=== PATIENT | female | born 1945 | race Caucasian/White ===

== ENCOUNTER 2024-10-08 13:30 | Inpatient (IN) | payer MEDICARE ==
[~2024-10-08] VITALS: Ht 152.4 cm; Wt 61.4 kg
[~2024-10-08 13:30] MED LIST: CALCITONIN-SAL3.7 ML; DILTIAZEM ER300 MG PO; HYDROCODON-ACE1 EA10 PO; OXYBUTYNIN CHLO10 MG PO; SPIRONOLACTONE25 MG PO
[2024-10-08] MEDS ORDERED: BENZONATATE100 MG PO (14:03)
[2024-10-08 14:52] LABS: BASOPHILS 0.1 % (0.1-1.2); EOSINOPHILS 0.4 % (0.7-5.8); HEMOGLOBIN 12.9 g/dL (11.2-15.7); LYMPHOCYTES 29.8 % (19.3-51.7); MCH 33.6 PG (25.6-32.2); MCHC 34.9 g/dL (32.2-35.5); MCV 96.4 fL (79.4-94.8); NEUTROPHILS 62.3 % (34.0-71.1); PLATELET COUNT 279 K/uL (182-369); RBC 3.84 M/uL (3.93-5.22)
[2024-10-08 15:14] LABS: ALBUMIN/GLOBULIN RATIO 0.54 (1.1-2.4); ANION GAP 13.4 (7-21); BILIRUBIN, TOTAL 0.7 mg/dL (0.2-1.0); BUN/CREATININE RATIO 10.29 (6.0-28.6); CALCIUM 8.6 mg/dL (8.5-10.1); CREATININE, SERUM 0.68 mg/dL (0.55-1.02); POTASSIUM 3.4 mmol/L (3.5-5.1); PROTEIN, TOTAL 8.6 g/dL (6.4-8.2)
[2024-10-08] MEDS ORDERED: SODIUM CHLORIDE 0.9% 1,000 ML IV PRN (15:15)
[2024-10-08 15:43] LABS: LACTIC ACID, BLOOD 0.9 mmol/L (0.4-2.0)
[2024-10-08 17:19] LABS: AMPHETAMINES, URINE NEGATIVE (NEGATIVE); BARBITURATES, URINE NEGATIVE (NEGATIVE); BENZODIAZEPINE, URINE NEGATIVE (NEGATIVE); BUPRENORPHINE, URINE NEGATIVE (NEGATIVE); CANNABINOID, URINE NEGATIVE (NEGATIVE); COCAINE, URINE NEGATIVE (NEGATIVE); ECSTASY, URINE NEGATIVE (NEGATIVE); FENTANYL, URINE NEGATIVE (NEGATIVE); METHADONE, URINE NEGATIVE (NEGATIVE); OPIATES, URINE NEGATIVE (NEGATIVE); OXYCODONE, URINE NEGATIVE (NEGATIVE); PHENCYCLIDINE, URINE NEGATIVE (NEGATIVE)
[2024-10-08] MEDS ORDERED: HEParin SOD (PORCINE) 5,000 UNIT/ML SYR IV PRN ×3 (19:30)
[2024-10-08] MEDS ORDERED: HEPARIN SOD,PORK IN 0.45% NACL 500 ML IV SCH (19:30)
[2024-10-08] MEDS ORDERED: HEParin SOD (PORCINE) 5,000 UNIT/ML SYR IV ONE (19:30)
[2024-10-08 19:41] LABS: INR 1.09 (0.80-1.30); PROTIME 13.7 Sec (11.2-14.2)
[2024-10-08 19:43] LABS: PARTIAL THROMBOPLASTIN TIME 23.5 Sec (22.9-41.3)
[2024-10-08 21:58] VITALS: BP 184/81
--- NOTE | 2024-10-08 23:09 | NUR ---
PT ALERT AND ORIENTED. PUDDING AND ICE WATER PROVIDED. ADMISSION ASSESSMENT COMPLETE. PT DENIES PAIN OR NAUSEA. DENIES SOB. SpO2 MID 90'S ON RA. TELE #[address] HR 100'S. HEPARIN DRIP INFUSING PER ORDER. PT ORIENTED TO ROOM AND NURSE CALL LIGHT. PT DENIES QUESTIONS OR CONCERNS. CALL LIGHT IN REACH. BED ALARM FOR SAFETY.
[2024-10-09] VITALS (11 sets, daily range): BP systolic 138–169; BP diastolic 56–80
--- NOTE | 2024-10-09 00:31 | NUR ---
PT RESTING IN BED WITH EYES CLOSED. RESPIRATIONS EVEN. SpO2 92% ON RA. HR 90'S. BED ALARM IN PLACE. CALL LIGHT IN REACH.
[2024-10-09] MEDS ORDERED: ALBUTEROL SULFATE 0.083% 3 ML VIAL INH PRN (02:45)
--- NOTE | 2024-10-09 02:51 | NUR ---
LAB IN FOR DRAW. VS AND I&O OBTAINED. ASSESSMENT UNCHANGED. PT DENIES PAIN OR SOB. DRY COUGH NOTED. SpO2 MID 90'S. HR LOW 100'S. NO NEEDS AT THIS TIME. CALL LIGHT IN REACH.
--- NOTE | 2024-10-09 03:14 | NUR ---
PTT RECEIVED. HEPARIN DRIP STOPPED PER PROTOCOL FOR 30 MINUTES.
--- NOTE | 2024-10-09 05:14 | NUR ---
PT AWAKE IN BED. VS AND I&O OBTAINED. PT DENIES NEEDS. CALL LIGHT IN REACH. BED ALARM FOR SAFETY.
--- NOTE | 2024-10-09 07:26 | NUR ---
Pt report received from ANY Donaldson. Pt is resting supine in bed, HOB elevated, eyes closed, breathing is regular, even, and non-labored, pt is snoring softly with mouth agape. IVF are running at ordered rate (heparin), verified at bedside with ANY Donaldson. Side rails up x4, bedside table in reach, call light in reach. White board updated. CPOX on, SPO2 at 90% on room air.
[2024-10-09] MEDS ORDERED: SPIRONOLACTONE 25 MG TAB PO SCH (09:00)
[2024-10-09] MEDS ORDERED: dilTIAZem HCL 300 MG CAPCR PO SCH (09:00)
[2024-10-09] MEDS ORDERED: oxyBUTYnin chloride 5 MG TAB PO SCH (09:00)
[2024-10-09] MEDS ORDERED: POTASSIUM BICARBONATE/CIT AC 20 MEQ TABEF PO ONE (09:00)
[2024-10-09 09:46] LABS: BASOPHILS 0.3 % (0.1-1.2); EOSINOPHILS 0.8 % (0.7-5.8); HEMATOCRIT 34.6 % (34.1-44.9); HEMOGLOBIN 12.2 g/dL (11.2-15.7); LYMPHOCYTES 28.2 % (19.3-51.7); MCH 34.1 PG (25.6-32.2); MCHC 35.3 g/dL (32.2-35.5); MCV 96.6 fL (79.4-94.8); MONOCYTES 7.4 % (4.7-12.5); PLATELET COUNT 308 K/uL (182-369); RBC 3.58 M/uL (3.93-5.22)
[2024-10-09] MEDS ORDERED: APIXABAN 5 MG TAB PO SCH (10:00)
[2024-10-09] MEDS ORDERED: AZITHROMYCIN 250 MG TAB PO SCH (10:00)
--- NOTE | 2024-10-09 10:09 | NUR ---
Pt visitor came to nurse's station to advise that the pt does not sleep well and wondered if there was any medication that can be ordered to help her sleep. I asked the pt if she does have trouble sleeping and she said, "yes". I asked her if she has taken melatonin before and if so, did it help her, and she stated, "yes". Notified Dr. Gaitan of the pt's concern for sleep and he advised that he would order melatonin.
[2024-10-09] MEDS ORDERED: levoFLOXacin 750 MG TAB PO SCH (10:15)
--- NOTE | 2024-10-09 10:53 | NUR ---
HOURLY ROUNDING. PATIENT IS IN BED, PATIENT WAS OFFERED A SHOWERED AND REFUSED. NO REQUEST FROM PATIENT AT THIS TIME. BOARD HAS BEEN UPDATED AND CALL LIGHT PLACED WITHIN REACH
--- NOTE | 2024-10-09 11:22 | NUR ---
Noted the "Nurse Notify" to "notify imaging department to order isotope". I have called Imaging 4 times with no answer. I will continue to try to contact them.
--- NOTE | 2024-10-09 11:27 | NUR ---
U/S complete in pt's room
--- NOTE | 2024-10-09 11:28 | NUR ---
NOTIFIED OF SURGICAL SERVICES DIRECTOR STATING THE BLE VENOUS ULTRASOUND WAS NEGATIVE. NO NEW ORDERS AT THIS TIME.
--- NOTE | 2024-10-09 14:06 | NUR ---
In with pt for hourly rounding. Pt is sitting up in bed, watching television and using her cell phone. Pt denies needs at this time, but tells me that her right eye is "really bothering me". Noted slight redness underneath eye and it appears slightly watery. Pt states she keep getting "stuff" out of the inner corner of her right eye and states that her eye is itchy. She states it does not feel "gritty" or unique or like there is grit in her eye. Pt accepts a warm wash cloth to apply to her right eye for now. Advised pt that I will reach out to Dr. Gaitan to see if he wants to order her any drops for her eyes. She states she has "thera eyes" drops but has not used them since arriving at the hospital.
--- NOTE | 2024-10-09 14:23 | NUR ---
Notified Dr. Gaitan of pt's c/o itching and discharge from pt's eye. Pt advises she has had it for a week.
[2024-10-09] MEDS ORDERED: OXYBUTYNIN CHLO10 MG PO (15:26)
--- NOTE | 2024-10-09 15:32 | NUR ---
MED REC COMPLETE
--- NOTE | 2024-10-09 17:14 | NUR ---
Called Lucas in [place] and asked him if he has had time to review teaching for the coronet with this pt. He advised he has not had time yet today. He advised he was okay with this RN providing pt teaching to her for this. Coronet provided to pt and reviewed instructions for use with pt. Advised her that the orders state to use the coronet 10 times every hour while awake. Pt verbalized understanding of instructions. Dinner tray at bedside. Assisted pt with setting up her meal. Call light in reach.
--- NOTE | 2024-10-09 17:59 | NUR ---
Pt has been in bed for most of the shift, stating she feels too tired to get up and ambulate or sit up in the chair. Pt has been up to void and had a BM earlier in the shift, before an order for a stool sample was entered, and has not had another BM since. Stool sample still needs to be collected. Pt has been tolerating meals well, maintains adequate SPO2 on room air, has a moist cough, and has complained only of her right eye "bothering me" and it itches. Her complaint was assessed by Dr. Gaitan, who ordered erythromycin ointment for her eye Q4H for "pink eye". First dose was administered around 1700 hours. Med is locked in pt lock box in room. Pt was provided with a coronet and instructed on its use. Pt was able to demonstrate its use successfully. Pt has had no c/o pain this shift, and her sats have remained above 90% on room air.
[2024-10-09] MEDS ORDERED: ERYTHROMYCIN 3.5 GM TUBE OD SCH (18:00)
--- NOTE | 2024-10-09 19:30 | NUR ---
CALL LIGHT ANSWERED. SBA PATIENT TO THE BATHROOM TO VOID 275 ML YELLOW URINE. PATIENT IS BACK IN BED. NO FURTHER NEEDS AT THIS TIME. CPOX ON.
--- NOTE | 2024-10-09 19:37 | NUR ---
REPORT RECEIVED FROM DAY SHIFT RN. PT LYING IN BED ALERT AND ORIENTED. DENIES NEEDS. WHITE BOARD UPDATED. CALL LIGHT IN REACH.
[2024-10-09] MEDS ORDERED: ACETAMINOPHEN 500 MG TAB PO PRN (21:00)
[2024-10-09] MEDS ORDERED: MELATONIN 3 MG TAB PO SCH (21:00)
--- NOTE | 2024-10-09 21:20 | NUR ---
EVENING ASSESSMENT COMPLETE. SCHEDULED MEDS ADMIN PER EMAR. PT REPORTS BLE PAIN 09/03. NIO PLACED FOR PRN FOR PAIN. BLE ELEVATED ON PILLOW. PT DENIES SOB. SpO2 MID 90'S ON RA. NON PRODUCTIVE COUGH NOTED. LUNGS CLEAR WITH AUSCULTATION. PT UTILIZING CORONET APPROPRIATELY. TELE #[address] SR. HR 80'S. ASSISTED TO REPOSITION FOR COMFORT. PT DENIES QUESTIONS OR CONCERNS. CALL LIGHT IN REACH.
--- NOTE | 2024-10-09 22:10 | NUR ---
PATIENT CALLED. SBA TO THE BATHROOM TO VOID 600ML YELLOW URINE. PATIENT RETURNED TO BED. DENIES FURTHER NEEDS AT THIS TIME. BED ALARM SET ON FOR SAFETY. CALL LIGHT AND SIDE TABLE WITHIN REACH.
--- NOTE | 2024-10-09 23:41 | NUR ---
PT AWAKE IN BED UTILIZING CELL PHONE. REPORTS BLE PAIN MUCH IMPROVED. SpO2 MID 90'S ON RA. NO C/O SOB. NO NEEDS AT THIS TIME. CALL LIGHT IN REACH.
[2024-10-10] VITALS (7 sets, daily range): BP systolic 143–170; BP diastolic 57–80
--- NOTE | 2024-10-10 02:20 | NUR ---
PT AWAKE IN BED. UP TO BR WITH SBA TO VOID. GAIT STEADY. BACK TO BED, BUCK WELL. VS AND I&O OBTAINED. ASSESSMENT COMPLETE. PT REPORTS GENERALIZED DISCOMFORT 08/04. PRN FOR PAIN ADMIN PER EMAR. SCHEDULED MEDS ADMIN. ASSISTED TO REPOSITION FOR COMFORT. NO FURTHER NEEDS. BED ALARM FOR SAFETY. CALL LIGHT IN REACH.
--- NOTE | 2024-10-10 05:15 | NUR ---
LAB IN FOR MORNING DRAW. VS AND I&O OBTAINED. SCHEDULED MEDS ADMIN PER EMAR. NO NEEDS AT THIS TIME. CALL LIGHT IN REACH.
[2024-10-10 05:20] LABS: BASOPHILS 0.3 % (0.1-1.2); EOSINOPHILS 0.8 % (0.7-5.8); HEMATOCRIT 33.6 % (34.1-44.9); HEMOGLOBIN 11.7 g/dL (11.2-15.7); LYMPHOCYTES 26.9 % (19.3-51.7); MCHC 34.8 g/dL (32.2-35.5); MCV 97.7 fL (79.4-94.8); MONOCYTES 9.1 % (4.7-12.5); NEUTROPHILS 62.6 % (34.0-71.1); PLATELET COUNT 288 K/uL (182-369); RBC 3.44 M/uL (3.93-5.22)
[2024-10-10 05:28] LABS: ANION GAP 11.7 (7-21); BUN/CREATININE RATIO 9.09 (6.0-28.6); CALCIUM 8.6 mg/dL (8.5-10.1); CREATININE, SERUM 0.77 mg/dL (0.55-1.02); MAGNESIUM 1.5 mg/dL (1.8-2.4); POTASSIUM 3.7 mmol/L (3.5-5.1)
--- NOTE | 2024-10-10 07:06 | NUR ---
Pt report received from ANY Escobar. Pt is resting supine in bed, HOB elevated, A&O, watching television. Pt denies needs at this time. Side rails up x4, call light in reach. Bedside table and personal belongings in reach. White board updated.
--- NOTE | 2024-10-10 07:59 | NUR ---
UR CLINICAL REVIEW: 2 MN FOR VERSALUS-PER BOTTLE WASHING MACHINE OPERATOR MEETS INPT FOR PE/PNEUMONIA WITH NEED FOR HEPARIN GTT/[facility]PT 10/08/24 @ 7303 ORDER MATCHES REG CLINICAL FAXED TO [facility] FOR REVIEW DISCHARGE TO HOME WHEN STABLE
[2024-10-10] MEDS ORDERED: MAGNESIUM SULFATE 2 GM/50 ML BAG IV ONE (08:00)
[2024-10-10] MEDS ORDERED: levoFLOXacin 750 MG TAB PO SCH (09:00)
--- NOTE | 2024-10-10 10:17 | NUR ---
ALERT AND ORIENTED IN BED, FRIEND IN ROOM. PATIENT LIVES ALONE IN HOUSE WITH STAIRS TO BASEMENT. HOWEVER, SHE DOES NOT GO INTO THE BASEMENT. HAS A CANE SHE DOES NOT USE AT BASELINE AND STATES SHE HAS "BALANCE ASSISTANCE" AT HOME FROM PREVIOUS PT. STATES SHE DRIVES. SHE HAS NO DIFFICULTY PAYING UTILTIES, FOOD OR MEDICATIONS. STATES SHE PLANS TO RETURN HOME TODAY. CALLED [facility]. THEY ARE GOING TO OBTAIN CLINICAL INFORMATION FROM MEDICAL RECORDS AND CALL PATIENT TO SCHEDULE AN APPOINTMENT IN 8 WEEKS.
[2024-10-10] MEDS ORDERED: LEVOFLOXACIN750 MG PO (10:19)
[2024-10-10] MEDS ORDERED: ELIQUIS5 MG PO ×2 (10:21→10:27)
[2024-10-10] MEDS ORDERED: METHIMAZOLE10 MG PO (10:24)
[2024-10-10] MEDS ORDERED: ERYTHROMYCIN1 GM OD (10:24)
[2024-10-10] MEDS ORDERED: AZITHROMYCIN500 MG PO (10:26)
--- NOTE | 2024-10-10 11:03 | NUR ---
AFTER PATIENT'S VITALS WERE DONE ASKED PATIENT DID SHE WASH HER FACE OR BRUSH HER TEETH AND SHE SAID NO. SO I GOT HER A WARM WASH CLOTH PATIENT WASHED HER FACE AND BRUSHED HER TEETH WHILE I WAS IN HER ROOM. SHE ALSO HAD A VISITOR. ALSO ASKED HER IF SHE WOULD LIKE TO TAKE A SHOWER BEFORE SHE GOES HOME AND SHE SAID SHE WILL TAKE ONE WHEN SHE GETS HOME.
--- NOTE | 2024-10-10 11:32 | NUR ---
ORDERS SENT TO [facility] FOR IMAGING OF THYROID TO BE DONE.
--- NOTE | 2024-10-10 12:12 | NUR ---
In with pt in response to call light use. ANY Mejia had assisted pt to the bathroom prior. Pt back to bed after a medium sized, soft BM. Per Dr. Gaitan, we no longer need a stool sample. Pt requested assistance with combing a knot out of her hair, this was provided to her. Call light in reach.
--- NOTE | 2024-10-10 13:03 | EKG ---
[facility] [address] [place], [place] [address] [address] Sin[address] N[address]pecific [address] abnormality Abnormal ECG No previous ECGs available Confirmed by Lexx Noyola DO ([id number]) on 10/10/2024 1:03:00 PM Electronically Signed By: LEXX NOYOLA DO 10/10/24 1303 PATIENT NAME: VIKTOR PORRAS DYAN Electrocardiogram DATE OF : 43 PHYSICIAN: LEXX NOYOLA DO REPORT #: [id number] REPORT IS CONFIDENTIAL AND NOT TO BE RELEASED WITHOUT AUTHORIZATION
--- NOTE | 2024-10-10 13:22 | NUR ---
ORDERS, NOTES, FACESHEET FAXED TO IMAGING FOR THYROID SCINTOGRAPHY. THEY WILL CALL TOMORROW WITH SCHEDULED TIME. NURSING STAFF UPDATED.
--- NOTE | 2024-10-10 13:52 | NUR ---
talked with the nurse at [facility]. thyroid scan has to be done through pcp for auth. let the nurse know this is urgent. faxed chart over. patient to follow up with dr. john after.
[2024-10-11 02:24] LABS: TRIIODOTHYRONINE,FREE FREE T3 3.6 pg/mL (2.5-4.3)
[2024-10-11 02:25] LABS: TRIIODOTHYRONINE,TOTAL T3 TTL 142 ng/dL (80-200)
== END 2024-10-10 14:12 | disposition home or self-care (01) | DRG 175 ==
LOC: ED 13:30 → MS 20:59
PROVIDERS: Emergency Medicine; ADMIT Student in an Organized Health Care Education/Training Program; ATTEND Student in an Organized Health Care Education/Training Program
DX: I26.99 Other pulmonary embolism without acute cor pulmonale (principal); J18.9 Pneumonia, unspecified organism; I10 Essential (primary) hypertension; E78.5 Hyperlipidemia, unspecified; R19.7 Diarrhea, unspecified; E05.80 Other thyrotoxicosis without thyrotoxic crisis or storm; Z66 Do not resuscitate; N39.41 Urge incontinence; H10.9 Unspecified conjunctivitis; Z85.3 Personal history of malignant neoplasm of breast; Z90.710 Acquired absence of both cervix and uterus; Z96.651 Presence of right artificial knee joint; Z98.890 Other specified postprocedural states; Z79.899 Other long term (current) drug therapy; Z88.5 Allergy status to narcotic agent
CPT/HCPCS: 36415; 71046; 71260; 74177; 80048; 80053; 80307; 83605; 83735; 84439; 84443; 84480; 84481; 85025; 85379; 85610; 85730; 86140; 86141; 93005; 93010; 93970; 94668; 94762; 94799; A9270; J1644; J3475; J7030; Q9967